=== PATIENT | female | born 1955 | race Caucasian/White ===

== ENCOUNTER → 2016-06-14 07:32 | Outpatient (CLI) | payer BC ==
[2014-03-06 12:57] VITALS: BMI 36.9
[~2016-06-14 07:32] MED LIST: CALTRATE 600 M600 M1 PO; CHROMAGEN CAPLE1 TAB PO; COLACE100 MG PO; COZAAR100 MG PO; DILAUDID4 MG PO; ELIQUIS2.5 MG PO; FISH OIL 1,0001 CA1 PO; IBUPROFEN800 MG PO; MS CONTIN15 MG PO; NORVASC5 MG PO; SENOKOT-S TABLE1 TAB PO; SYNTHROID137 MCG PO; VITAMIN D250000 UNIT PO; VOLTAREN75 MG PO; ZYLOPRIM100 MG PO
[2016-06-17 10:31] LABS: BASOPHILS 1.3 % (0.0-2.0); EOSINOPHILS 2.8 % (0-7); HEMATOCRIT 44.5 % (36.0-48.0); HEMOGLOBIN 14.1 g/dL (12-16); IMMATURE GRANULOCYTES 0.1 % (0-5); LYMPHOCYTES 41.3 % (15-50); MCH 31.3 pg (26.0-34.0); MCHC 31.7 g/dL (31.0-37.0); MCV 98.9 fL (80.0-100.0); MEAN PLATELET VOLUME 10.8 fL (7.4-10.4); MONOCYTES 7.2 % (2-11); NEUTROPHILS 47.3 % (40-80); PLATELET COUNT 363 10x3/uL (130-400); RDW 13.5 % (11.5-14.5); WBC 6.9 10x3/uL (4.8-10.8)
[2016-06-17 12:25] LABS: ERYTHROCYTE SEDIMENTATION RATE 10 mm/hr (0-30)
== END | disposition home or self-care (01) ==
LOC: D.MRI 07:32 → D.NM 10:15
PROVIDERS: Orthopaedic Surgery Sports Medicine
DX: M25.512 Pain in left shoulder (principal); Z95.0 Presence of cardiac pacemaker

== ENCOUNTER → 2016-07-07 07:20 | Outpatient (CLI) | payer BC ==
[2014-03-06 12:57] VITALS: BMI 36.9
== END | disposition home or self-care (01) ==
LOC: D.US 07:20
DX: N28.1 Cyst of kidney, acquired (principal)

== ENCOUNTER 2016-09-03 20:32 | Emergency (ER) | payer BC ==
[2014-03-06 12:57] VITALS: BMI 36.9
== END 2016-09-03 21:07 | disposition home or self-care (01) ==
LOC: D.ER 20:32
DX: S80.861A Insect bite (nonvenomous), right lower leg, initial encounter (principal); W57.XXXA Bitten or stung by nonvenomous insect and other nonvenomous arthropods, initial encounter; Y93.89 Activity, other specified; Y92.89 Other specified places as the place of occurrence of the external cause; Z95.0 Presence of cardiac pacemaker; G47.30 Sleep apnea, unspecified; I10 Essential (primary) hypertension

== ENCOUNTER → 2017-09-05 06:44 | Outpatient (CLI) | payer BC ==
[2014-03-06 12:57] VITALS: BMI 36.9
== END | disposition home or self-care (01) ==
LOC: D.MRI 06:44
DX: G57.61 Lesion of plantar nerve, right lower limb (principal)

== ENCOUNTER → 2020-06-30 11:03 | Outpatient (CLI) | payer OTHER, BC ==
[2014-03-06 12:57] VITALS: BMI 36.9
== END | disposition home or self-care (01) ==
LOC: D.NM 11:03
PROVIDERS: ATTEND Orthopaedic Surgery
DX: Z96.652 Presence of left artificial knee joint (principal)